=== PATIENT | female | born 1940 | race Caucasian/White ===

== ENCOUNTER → 2018-06-27 | Outpatient (CLI) | payer MEDICARE, BC | END | disposition home or self-care (01) | LOC: HKI 15:55 | DX: M25.552 Pain in left hip (principal); M25.551 Pain in right hip; M25.561 Pain in right knee; I10 Essential (primary) hypertension; G62.9 Polyneuropathy, unspecified; Z85.828 Personal history of other malignant neoplasm of skin | CPT/HCPCS: 73502; 73564 ==